=== PATIENT | female | born 1945 | race Caucasian/White ===

== ENCOUNTER 2018-04-14 06:39 | Day surgery (SDC) | payer MEDICARE, BC ==
[~2018-04-14 06:39] MED LIST: Lactated Ringers 1,000 ML IV SCH; Sodium Chloride 0.9% 10 ML Syringe FLUSH PRN; Sodium Chloride 0.9% 2.5 ML Syringe FLUSH PRN
--- NOTE | 2018-04-14 07:08 | PCM.PREANE ---
Preanesthetic Assessment - Anesthesia/Transfusion/Family Hx Anesthesia History: Prior Anesthesia Without Reaction Family History of Anesthesia Reaction: No Transfusion History: No Prior Transfusion(s) Intubation History: Unknown - Review of Systems General: No Symptoms Pulmonary: No Symptoms Cardiovascular: No Symptoms Gastrointestinal: No Symptoms, Other (screening) Neurological: No Symptoms Other: Reports: None - Physical Assessment O2 Sat by Pulse Oximetry: 95 Respiratory Rate: 16 Vital Signs: Last Vital Signs Temp 36.7 C 04/14/18 06:53 Pulse 93 04/14/18 06:53 Resp 16 04/14/18 06:53 BP 125/62 04/14/18 06:53 Pulse Ox 95 04/14/18 06:53 Height: 1.6 m Weight: 88.904 kg ASA Class: 2 Mental Status: Alert & Oriented x3 Airway Class: Mallampati = 2 Dentition: Reports: Normal Dentition, [place](s) (lower back) Thyro-Mental Finger Breadths: 2 Mouth Opening Finger Breadths: 2 ROM/Head Extension: Limited/Partial Lungs: Clear to Auscultation, Normal Respiratory Effort Cardiovascular: Regular Rate, Regular Rhythm - Allergies Allergies/Adverse Reactions: Allergies Allergy/AdvReac Type Severity Reaction Status Date / Time cephalexin [From Keflex] Allergy Hives Verified 04/10/18 15:49 - Blood Blood Available: No - Anesthesia Plan Pre-Op Medication Ordered: None - Acknowledgements Anesthesia Type Planned: MAC Pt an Appropriate Candidate for the Planned Anesthesia: Yes Alternatives and Risks of Anesthesia Discussed w Pt/Guardian: Yes Pt/Guardian Understands and Agrees with Anesthesia Plan: Yes PreAnesthesia Questionnaire HEENT History: Reports: Cataract, Other (See Below) Other HEENT History: wears glasses Cardiovascular History: Reports: Hypertension Gastrointestinal History: Reports: GERD (h/o esophageal stricture, dilated long time ago- OK since) Genitourinary History: Reports: None Musculoskeletal History: Reports: Other (See Below) (osteopenia) Endocrine/Metabolic History: Reports: Obesity/BMI 30+ Oncologic (Cancer) History: Reports: Uterine - Past Surgical History Head Surgeries/Procedures: Reports: None HEENT Surgical History: Reports: Cataract Surgery Female Surgical History: Reports: Hysterectomy, Salpingo-Oophorectomy Other Female Surgeries/Procedures: total abd hysterectomy for uterine cancer Oncologic Surgical History: Reports: Other (See Below) Other Oncologic Surgeries/Procedures: hysterectomy - SUBSTANCE USE Smoking Status *Q: Never Smoker Recreational Drug Use History: No - HOME MEDS Home Medications: Home Meds Losartan/Hydrochlorothiazide [Losartan-HCTZ 50-12.5 MG] 1 tab PO DAILY 10/28/17 [History] Calcium Carbonate/Vitamin D3 [Calcium 250+D] 2 tab PO DAILY 04/10/18 [History] Lutein/Minerals/Vit A,C & E [Ocuvite] 1 tab PO DAILY 04/10/18 [History] Nystatin/Triamcin [Nystatin-Triamcinolone Cream] 1 applic TOP TID PRN 04/10/18 [ History] Pantoprazole Sodium [Protonix] 40 mg PO DAILY 04/10/18 [History] - CURRENT (IN HOUSE) MEDS Current Meds: Current Medications Lactated Ringer's (Ringers, Lactated) 1,000 mls @ 125 mls/hr IV ASDIRECTED MIGUELINA Last Admin: 04/14/18 06:59 Dose: 125 mls/hr Sodium Chloride (Saline Flush) 10 ml FLUSH ASDIRECTED PRN PRN Reason: Keep Vein Open Sodium Chloride (Saline Flush) 2.5 ml FLUSH ASDIRECTED PRN PRN Reason: Keep Vein Open Sodium Chloride (Saline Flush) 10 ml FLUSH ASDIRECTED PRN PRN Reason: Keep Vein Open Sodium Chloride (Saline Flush) 2.5 ml FLUSH ASDIRECTED PRN PRN Reason: Keep Vein Open
[2018-04-14] MEDS ORDERED: Propofol 200 MG/20 ML SDV ONE ×3 (07:21→07:23)
--- NOTE | 2018-04-14 08:48 | PCM.OPNOTE ---
- General Post-Op/Procedure Note Date of Surgery/Procedure: 04/14/18 Operative Procedure(s): Screening colonoscopy Findings: Sigmoid colon polyp Pre Op Diagnosis: Screening colonoscopy Post-Op Diagnosis: Sigmoid colon polyp Anesthesia Technique: MAC Primary Surgeon: Elif Santoro Condition: Good
--- NOTE | 2018-04-14 08:49 | PCM.POSTAN ---
POST ANESTHESIA ASSESSMENT - MENTAL STATUS Mental Status: Alert, Oriented - RESPIRATORY Respiratory Status: Respiratory Rate WNL - CARDIOVASCULAR CV Status: Pulse Rate WNL, Blood Pressure Stable - GASTROINTESTINAL GI Status: No Symptoms - PAIN Pain Score: 0 - POST OP HYDRATION Hydration Status: Adequate & Stable - OBSERVATIONS Free Text/Narrative:: no anesthesia problems
--- NOTE | 2018-04-14 09:08 | PCM48HPAN ---
Post Anesthesia Note - EVALUATION WITHIN 48HRS OF ANESTHETIC Vital Signs in Normal Range: Yes Patient Participated in Evaluation: Yes Respiratory Function Stable: Yes Airway Patent: Yes Cardiovascular Function Stable: Yes Hydration Status Stable: Yes Pain Control Satisfactory: Yes Nausea and Vomiting Control Satisfactory: Yes Mental Status Recovered: Yes Resp Rate: 20 - COMMENTS/OBSERVATIONS Free Text/Narrative:: no anesthesia problems
--- NOTE | 2018-04-14 15:12 | OR ---
SURGEON: SANYA ALCALA MD DATE OF PROCEDURE: 04/14/2018 PREOPERATIVE DIAGNOSIS: Screening colonoscopy. POSTOPERATIVE DIAGNOSIS: Sigmoid colon polyps. PROCEDURE PERFORMED: Screening colonoscopy. ANESTHESIA: MAC. INSTRUMENT USED: Olympus colonoscope. EXTENT OF EXAM: To the cecum. PREPARATION: Good. LIMITATIONS: None. INDICATION FOR EXAMINATION: The patient is a 73-year-old female who presents for screening colonoscopy. We discussed the procedure, expected perioperative course, and risks including bleeding, infection, or damage to surrounding structures including perforation. The patient verbalized understanding and wishes to proceed. PROCEDURE IN DETAIL: The patient was brought into the endoscopy suite and placed in a left lateral decubitus position. A time-out was completed verifying the patient's name, age, date of , allergies, and procedure to be performed. Monitored anesthesia care was induced and continuous oxygen was provided via nasal cannula throughout the procedure. After adequate sedation was achieved, a digital rectal exam was performed. This exam was within normal limits. A well-lubricated colonoscope was inserted into the rectum and advanced under direct visualization to the level of the cecum. The cecum was identified by both visual and anatomic landmarks. A photograph was taken of cecal cap as well as with the scope retroflexed within the cecum. The scope was then slowly withdrawn while examining the color, texture, anatomy, and integrity of the mucosa from the cecum to the anal canal. The patient was found to have a 2 to 3 mm sessile polyp at 40 cm within the sigmoid colon. This was removed using a cold biopsy forceps. The remainder of the colonic mucosa was normal. The scope was brought into the rectum and retroflexed to allow visualization of the anal canal opening. This appeared normal and a photograph was taken. The scope was then straightened out and fully withdrawn. The [id number] time was 11 minutes. The patient tolerated the procedure well and was taken to PACU in stable condition. ENDOSCOPIC DIAGNOSIS: Sigmoid colon polyp. RECOMMENDATIONS: Follow up in clinic in 2 weeks. NGUYEN COVARRUBIAS /[id number]
== END 2018-04-14 09:19 | disposition home or self-care (01) ==
LOC: MW.SDS 06:39
PROVIDERS: ATTEND Surgery
DX: Z12.11 Encounter for screening for malignant neoplasm of colon (principal); D12.5 Benign neoplasm of sigmoid colon; I10 Essential (primary) hypertension; E66.9 Obesity, unspecified; Z68.34 Body mass index [BMI] 34.0-34.9, adult; K21.9 Gastro-esophageal reflux disease without esophagitis; Z79.899 Other long term (current) drug therapy; Z88.1 Allergy status to other antibiotic agents
CPT/HCPCS: 45380; J7120; 88305; J2704

== ENCOUNTER 2020-04-29 12:46 | Emergency (ER) | payer MEDICARE, BC ==
[2020-04-29] MEDS ORDERED: Bacitracin Oint 1 GM U/D Packet TOP ONE (13:46)
--- NOTE | 2020-04-29 14:08 | EDM.PDOC ---
ED HPI GENERAL MEDICAL PROBLEM - General Chief Complaint: Laceration Stated Complaint: PINCHED R HAND Time Seen by Provider: 04/29/20 13:07 - History of Present Illness INITIAL COMMENTS - FREE TEXT/NARRATIVE: History of present illness: [] Patient presents to it with a laceration to her right index finger after a long chair collapsed and pinched the finger in the lawn chair. She has about a 1 x 1 cm avulsion of the tissue on the volar aspect of her right dominant index finger. There is nothing to approximate the tissue is missing bleeding is controlled the wound is clean tendon function distal vascular function and neuro function is intact no medical problems no blood thinners no other injuries nothing makes it better or worse. Patient states her tetanus is up-to-date Review of systems: As per history of present illness and below otherwise all systems reviewed and negative. Past medical history: As per history of present illness and as reviewed below otherwise noncontributory. Surgical history: As per history of present illness and as reviewed below otherwise noncontributory. Social history: No reported history of drug or alcohol abuse. Family history: As per history of present illness and as reviewed below otherwise noncontributory. Physical exam: HEENT: Atraumatic, normocephalic, pupils reactive, negative for conjunctival pallor or scleral icterus, mucous membranes moist, throat clear, neck supple, nontender, trachea midline. Lungs: Clear to auscultation, breath sounds equal bilaterally, chest nontender. Heart: S1S2, regular, negative for clicks, rubs, or JVD. Abdomen: Soft, nondistended, nontender. Negative for masses or hepatosplenomegaly. Negative for costovertebral tenderness. Pelvis: Stable nontender. Genitourinary: Deferred. Rectal: Deferred. Extremities: Atraumatic, negative for cords or calf pain. Neurovascular unremarkable. By 1 cm avulsion of the right volar index finger. Bleeding controlled Neuro: Awake, alert, oriented. Cranial nerves II through XII unremarkable. Ce rebellum unremarkable. Motor and sensory unremarkable throughout. Exam nonfocal. Diagnostics: [] Therapeutics: [] Impression: [] Plan: Wean dress wound discharge home [] Definitive disposition and diagnosis as appropriate pending reevaluation and review of above. - Related Data Allergies Allergy/AdvReac Type Severity Reaction Status Date / Time cephalexin [From Keflex] Allergy Hives Verified 04/29/20 13:47 Home Meds: Home Meds Losartan/Hydrochlorothiazide [Losartan-HCTZ 50-12.5 MG] 1 tab PO DAILY 10/28/17 [History] Calcium Carbonate/Vitamin D3 [Calcium 250+D] 2 tab PO DAILY 04/10/18 [History] Lutein/Minerals/Vit A,C & E [Ocuvite] 1 tab PO DAILY 04/10/18 [History] Pantoprazole Sodium [Protonix] 40 mg PO DAILY 04/10/18 [History] Past Medical History HEENT History: Reports: Cataract, Other (See Below) Other HEENT History: wears glasses Cardiovascular History: Reports: Hypertension Gastrointestinal History: Reports: GERD Genitourinary History: Reports: None Musculoskeletal History: Reports: Other (See Below) Endocrine/Metabolic History: Reports: Obesity/BMI 30+ Oncologic (Cancer) History: Reports: Uterine - Infectious Disease History Infectious Disease History: Reports: None - Past Surgical History Head Surgeries/Procedures: Reports: None HEENT Surgical History: Reports: Cataract Surgery Female Surgical History: Reports: Hysterectomy, Salpingo-Oophorectomy Other Female Surgeries/Procedures: total abd hysterectomy for uterine cancer Oncologic Surgical History: Reports: Other (See Below) Other Oncologic Surgeries/Procedures: hysterectomy Social & Family History - Family History Family Medical History: Noncontributory - Tobacco Use Smoking Status *Q: Never Smoker - Caffeine Use Caffeine Use: Reports: None - Recreational Drug Use Recreational Drug Use: No ED ROS GENERAL - Review of Systems Review Of Systems: See Below ED EXAM, SKIN/RASH Exam: See Below Course - Vital Signs Text/Narrative:: There is nothing to approximate in the wound will heal by secondary intention cleaned and dressed in the emergency department discharge patient home Last Recorded V/S: Last Vital Signs Temp 36.8 C 04/29/20 13:30 Pulse 102 H 04/29/20 13:30 Resp 16 04/29/20 13:30 BP 136/69 04/29/20 13:30 Pulse Ox 97 04/29/20 13:30 - Orders/Labs/Meds Meds: Medications Discontinued Medications Generic Name Dose Route Start Last Admin Trade Name Freq PRN Reason Stop Dose Admin Bacitracin 1 dose 04/29/20 13:46 Bacitracin Oint 1 Gm TOP 04/29/20 13:47 ONETIME ONE Departure - Departure Time of Disposition: 14:07 Disposition: Home, Self-Care 01 Condition: Good Clinical Impression: Laceration - Discharge Information *PRESCRIPTION DRUG MONITORING PROGRAM REVIEWED*: Not Applicable *COPY OF PRESCRIPTION DRUG MONITORING REPORT IN PATIENT YONY: Not Applicable Instructions: Laceration Care, Adult, [id number] Referrals: Tim Farooq MD [Primary Care Provider] - Additional Instructions: The following information is given to patients seen in the emergency department who are being discharged to home. This information is to outline your options for follow-up care. We provide all patients seen in our emergency department with a follow-up referral. The need for follow-up, as well as the timing and circumstances, are variable depending upon the specifics of your emergency department visit. If you don't have a primary care physician on staff, we will provide you with a referral. We always advise you to contact your personal physician following an emergency department visit to inform them of the circumstance of the visit and for follow-up with them and/or the need for any referrals to a consulting specialist. The emergency department will also refer you to a specialist when appropriate. This referral assures that you have the opportunity for follow-up care with a specialist. All of these measure are taken in an effort to provide you with optimal care, which includes your follow-up. Under all circumstances we always encourage you to contact your private physician who remains a resource for coordinating your care. When calling for follow-up care, please make the office aware that this follow-up is from your recent emergency room visit. If for any reason you are refused follow-up, please contact the [facility] Emergency Department at and asked to speak to the emergency department charge nurse. Sepsis Event Note (ED) - Evaluation Sepsis Screening Result: No Definite Risk - Focused Exam Vital Signs: Vital Signs Temp Pulse Resp BP Pulse Ox 04/29/20 13:30 36.8 C 102 H 16 136/69 97
== END 2020-04-29 14:27 | disposition home or self-care (01) ==
LOC: MW.ED 12:46
DX: S61.210A Laceration without foreign body of right index finger without damage to nail, initial encounter (principal); I10 Essential (primary) hypertension; K21.9 Gastro-esophageal reflux disease without esophagitis; E66.9 Obesity, unspecified; Z68.34 Body mass index [BMI] 34.0-34.9, adult; Z88.1 Allergy status to other antibiotic agents; Z79.899 Other long term (current) drug therapy; W23.0XXA Caught, crushed, jammed, or pinched between moving objects, initial encounter
CPT/HCPCS: 99282